=== PATIENT | male | born 1975 | race Hispanic/Latino ===

== ENCOUNTER 2016-12-12 22:53 | Emergency (ER) | payer OTHER ==
[2016-12-12] MEDS ORDERED: SUBLIMAZE IV ONE (23:37)
[2016-12-12] MEDS ORDERED: ZOFRAN IV ONE (23:37)
--- NOTE | 2016-12-12 23:37 | Emergency Department Report ---
ED ENT HPI - General Stated complaint: R HIP PAIN/R ARM PAIN Time Seen by Provider: 12/12/16 23:15 ED Dental HPI - General Stated complaint: R HIP PAIN/R ARM PAIN Time Seen by Provider: 12/12/16 23:15 ED Review of Systems ROS: Stated complaint: R HIP PAIN/R ARM PAIN Other details as noted in HPI Critical care attestation.: If time is entered above; I have spent that time in minutes in the direct care of this critically ill patient, excluding procedure time. ED Disposition Condition: Stable Referrals: PRIMARY CARE, [Primary Care Provider] - 3-5 Days
--- NOTE | 2016-12-12 23:59 | Emergency Department Report ---
HPI - General Time Seen by Provider: 12/12/16 23:15 - HPI HPI: Room 8 The patient is a 40-year-old male presenting with a chief complaint of headache , right shoulder pain and right hip pain. The patient states he was on the top bunk of his bed and when he jumped off he slipped and fell landing on his right shoulder and right hip. Patient states he shielded his head during the fall but still "blacked out." The patient complains of pain in his right shoulder, right hip and a slight headache. Patient gives his shoulder and hip pain a score of 15/10. Location:, Right shoulder, right hip, head Duration: [see above] Quality:. Pain Severity: 15/10 Modifying factors: [see above] Context: [see above] Mode of transportation: [not driving] ED Past Medical Hx - Past Medical History Hx Hypertension: Yes - Surgical History Additional Surgical History: Left knee surgery, facial tumor removal - Family History Family history: no significant - Social History Smoking Status: Current Every Day Smoker (1 pack per day) Substance Use Type: None (denies illicit drug use), Alcohol (rarely) - Medications Home Medications: Home Medications Medication Instructions Recorded Confirmed Last Taken Type oxyCODONE /ACETAMINOPHEN [Percocet 1 - 2 tab PO Q6HR PRN #30 tablet 12/13/16 Unknown Rx 325] ED Review of Systems ROS: Stated complaint: R HIP PAIN/R ARM PAIN Other details as noted in HPI Comment: All other systems reviewed and negative Constitutional: denies: chills, fever Eyes: denies: eye pain, eye discharge, vision change Respiratory: denies: cough, shortness of breath, wheezing Cardiovascular: as per HPI Endocrine: no symptoms reported Gastrointestinal: denies: abdominal pain, nausea, diarrhea Genitourinary: denies: urgency, dysuria Musculoskeletal: arthralgia, myalgia Skin: denies: rash, lesions Neurological: headache Psychiatric: denies: anxiety, depression Hematological/Lymphatic: denies: easy bleeding, easy bruising Physical Exam - Physical Exam Physical Exam: GENERAL: The patient is well-developed well-nourished male lying on stretcher appearing to be in moderate discomfort. [] HEENT: Normocephalic. Atraumatic. Extraocular motions are intact. Patient has moist mucous membranes. NECK: Supple. Trachea midline CHEST/LUNGS: Clear to auscultation. There is no respiratory distress noted. HEART/CARDIOVASCULAR: Regular. There is no tachycardia. There is no gallop rub or murmur. ABDOMEN: There is no abdominal distention. SKIN: There is no rash. There is no edema. There is no diaphoresis. NEURO: The patient is awake, alert, and oriented. The patient is cooperative. The patient has normal speech MUSCULOSKELETAL: There is tenderness to palpation of the right shoulder. There is no evidence of acute injury. ED Course - Consultations Consultation #1: 12/13/16 02:[address] scan discussed with Dr. Guerra-recommends touchdown weightbearing with walker and follow up in 3-4 weeks ED Medical Decision Making - Radiology Data Radiology results: report reviewed (CT head, CT cervical spine), image reviewed (right shoulder x-ray, right hip x-ray, CT head, CT cervical spine, CT hip) interpreted by me: Right shoulder [id number] clavicle fracture Right hip x-ray-no acute fractures CT cervical spine (read by radiologist) -no evidence of cervical fracture CT head (read by radiologist)-no evidence of acute intracranial abnormality CT right hip (read by radiologist)-there is focal irregularity of the posterior wall lip of the right acetabulum suggesting old fracture. No acute fracture seen. Examination is otherwise remarkable - Differential Diagnosis shoulder dislocation, image fracture, clavicle fracture, hip fracture, ICH Critical care attestation.: If time is entered above; I have spent that time in minutes in the direct care of this critically ill patient, excluding procedure time. ED Disposition Clinical Impression: Closed right clavicular fracture, Acute right hip pain Disposition: DISCHARGED TO HOME OR SELFCARE Is pt being admited?: No Does the pt Need Aspirin: No Condition: Stable Instructions: Arthralgia (ED) Additional Instructions: Return to the emergency department immediately should you develop worsening symptoms, fever, inability to tolerate food or liquid or any other concerns. Prescriptions: oxyCODONE /ACETAMINOPHEN [Percocet 5/325] 1 - 2 tab PO Q6HR PRN #30 tablet PRN Reason: Pain Referrals: PRIMARY CARE, [Primary Care Provider] - 3-5 Days SADI GUERRA MD [Staff Physician] - 3-5 Days (Dr. Guerra is an orthopedic surgeon. Please follow up with him for further evaluation) Time of Disposition: 02:07
--- NOTE | 2016-12-13 00:33 | Cat Scan Report ---
FINAL REPORT PROCEDURE: CT CERVICAL SPINE WO CON TECHNIQUE: Computerized tomography of the cervical spine was performed from the skull base to T1 without contrast material. HISTORY: Trauma. COMPARISON: No prior studies are available for comparison. FINDINGS: C1-2: No significant abnormality. C2-3: No significant abnormality. C3-4: Mild left facet arthropathy. C4-5: No significant abnormality. Slight disc bulge. C5-6: Slight disc bulge. C6-7: No significant abnormality. C7-T1: No significant abnormality. Other: Small multilevel osteophytes. Biapical paraseptal emphysema. IMPRESSION: No CT evidence of cervical spine fracture. Mild degenerative changes. Emphysema.
--- NOTE | 2016-12-13 00:33 | Cat Scan Report ---
FINAL REPORT PROCEDURE: CT HEAD/BRAIN WO CON TECHNIQUE: Computerized tomography of the head was performed without contrast material. HISTORY: Trauma. COMPARISON: No prior studies are available for comparison. FINDINGS: Skull and scalp: Normal. Paranasal sinuses: Minimal scattered ethmoid sinusitis. Ventricles and subarachnoid spaces: Normal. Cerebrum: No evidence of hemorrhage, acute infarction or mass . Cerebellum and brainstem: No evidence of hemorrhage, acute infarction or mass. Vasculature: Normal. Comments: None. IMPRESSION: No CT evidence of acute intracranial pathology. Consider MRI of the brain for further characterization if there is continued clinical concern and patient has no contraindication to MRI.
--- NOTE | 2016-12-13 00:40 | XRay Report ---
FINAL REPORT PROCEDURE: XR SHOULDER 2 RT TECHNIQUE: Right shoulder radiographs including AP and transscapular views. CPT 25314 HISTORY: Shoulder pain. COMPARISON: No prior studies are available for comparison. FINDINGS: Fracture (s) and/or Dislocation(s): Mildly comminuted fracture through the distal 3rd of the right clavicle. Mild overriding of the fracture fragments. Slight inferior displacement of the distal fracture fragment in relation to the proximal fracture fragment. Joint space(s): Normal . Soft tissues: Normal . Bone mineralization: Normal . Foreign bodies: None . IMPRESSION: Mildly displaced post traumatic fracture through the distal 3rd of the right clavicle.
--- NOTE | 2016-12-13 00:43 | XRay Report ---
FINAL REPORT PROCEDURE: XR HIP 2-3V RT TECHNIQUE: RIGHT hip radiographs, 2 views each, including AP view of the pelvis. HISTORY: Hip pain. COMPARISON: No prior studies are available for comparison. FINDINGS: Fracture (s) and/or Dislocation(s): None . Joint space(s): Mild narrowing and osteophytes of the bilateral hip joints. Soft tissues: Normal. Bone mineralization: Normal. Foreign bodies: None. IMPRESSION: No radiographic evidence of displaced fracture
--- NOTE | 2016-12-13 01:53 | Cat Scan Report ---
FINAL REPORT PROCEDURE: CT LOWER EXTREMITY RT WO CON TECHNIQUE: Computerized axial tomography of the pelvis was performed without contrast material. HISTORY: right hip pain status post fall COMPARISON: No prior studies are available for comparison. TECHNICAL QUALITY: Satisfactory. FINDINGS: Imaged small and large intestine: Normal . Genitourinary system: Normal . Lymph nodes/mesentery: Normal . Pelvic masses: None . Intraperitoneal fluid: None . Sacrum, sacroiliac joints, iliac wings, symphysis pubis and pubic rami are intact. The hip joints are intact. There is no dislocation. The femoral heads, femoral necks and proximal femoral diaphysis are unremarkable. There is focal irregularity of the posterior wall lip of the right acetabulum suggesting old fracture. No acute fracture is seen. IMPRESSION: There is focal irregularity of the posterior wall lip of the right acetabulum suggesting old fracture. No acute fracture is seen. Examination is otherwise unremarkable.
[2016-12-13] MEDS ORDERED: TORADOL IV ONE (01:57)
[2016-12-13] MEDS ORDERED: SUBLIMAZE IV ONE (01:57)
[2016-12-13 03:22] VITALS: BP 129/86
== END 2016-12-13 03:22 | disposition home or self-care (01) ==
LOC: ED 22:53
DX: S42.001A Fracture of unspecified part of right clavicle, initial encounter for closed fracture (principal); I10 Essential (primary) hypertension; F17.200 Nicotine dependence, unspecified, uncomplicated; W06.XXXA Fall from bed, initial encounter; Y93.89 Activity, other specified; Y92.89 Other specified places as the place of occurrence of the external cause; Y99.8 Other external cause status
CPT/HCPCS: 70450; 72125; 73030; 73502; 73700; 96374; 96375; 96376; 99284; J1885; J2405; J3010